=== PATIENT | male | born 1990 | race Caucasian/White ===

== ENCOUNTER 2022-01-09 14:36 | Emergency (ER) | payer OTHER ==
[~2022-01-09] VITALS: Ht 180.3 cm; Wt 82.1 kg
[2022-01-09 14:37] VITALS: BP 131/75
[2022-01-09] MEDS ORDERED: FLUORESCEIN OPHTH 1 MG STRIP OD ONE (15:25)
[2022-01-09] MEDS ORDERED: POLYSOL OD (15:52)
== END 2022-01-09 16:24 | disposition home or self-care (01) ==
LOC: M ED 14:36
DX: H10.31 Unspecified acute conjunctivitis, right eye (principal)

== ENCOUNTER 2022-08-02 10:20 | Inpatient (IN) | payer OTHER ==
[~2022-08-02] VITALS: Ht 182.9 cm; Wt 73.9 kg
[~2022-08-02 10:20] MED LIST: POLYSOL OD
[2022-08-02 11:13] LABS: HEMATOCRIT 44.5 % (42.0-52.0); HEMOGLOBIN 15.4 g/dl (13.5-17.5); MEAN CORPUSCULAR HEMOGLOBIN 32.9 pg (27.0-33.0); MEAN CORPUSCULAR HGB CONC 34.6 g/dl (32.0-36.5); MEAN CORPUSCULAR VOLUME 95.1 fl (80.0-96.0); PLATELET COUNT, AUTOMATED 218 10^3/uL (150-450); RED BLOOD COUNT 4.68 10^6/uL (4.30-6.10); WHITE BLOOD COUNT 8.6 10^3/uL (4.0-10.0)
[2022-08-02 11:43] LABS: AMPHETAMINES LEVEL URINE NEGATIVE (NEGATIVE); BARBITURATES URINE NEGATIVE (NEGATIVE); BENZODIAZEPINES URINE NEGATIVE (NEGATIVE); CANNABINOIDS URINE POSITIVE (NEGATIVE); COCAINE METABOLITE URINE NEGATIVE (NEGATIVE); METHADONE URINE NEGATIVE (NEGATIVE); OPIATES URINE NEGATIVE (NEGATIVE); PHENCYCLIDINE URINE NEGATIVE (NEGATIVE)
[2022-08-02 12:05] LABS: ACETAMINOPHEN LEVEL < 2.0 UG/ML (10.0-30.0); ALBUMIN 4.4 GM/DL (3.2-5.2); ALT/SGPT 36 U/L (12-78); BILIRUBIN,DIRECT 0.4 MG/DL (0.0-0.2); BILIRUBIN,TOTAL 1.4 MG/DL (0.2-1.0); BLOOD UREA NITROGEN 13 MG/DL (7-18); CALCIUM LEVEL 9.2 MG/DL (8.5-10.1); CARBON DIOXIDE LEVEL 27 MEQ/L (21-32); CHLORIDE LEVEL 106 MEQ/L (98-107); CREATININE FOR GFR 0.81 MG/DL (0.70-1.30); ETHYL ALCOHOL (ETHANOL) < 0.003 % (0.000-0.010); GLOMERULAR FILTRATION RATE > 60.0 (>60); GLUCOSE, FASTING 112 MG/DL (70-100); POTASSIUM SERUM 3.6 MEQ/L (3.5-5.1); SALICYLATE LEVEL < 1.7 MG/DL (5.0-30.0); SODIUM LEVEL 139 MEQ/L (136-145); THYROID STIMULATING HORMONE 0.337 uIU/ML (0.358-3.740); TOTAL PROTEIN 7.4 GM/DL (6.4-8.2)
[2022-08-02] MEDS ORDERED: NICOTINE 21MG/24HR 1 EA TRANSDERMAL TD ONE (12:25)
[2022-08-02 12:48] LABS: RSV AMPLIFICATION NEGATIVE (NEGATIVE)
[2022-08-02] MEDS ORDERED: EXCETAB32 PO (13:36)
[2022-08-02] MEDS ORDERED: HOME MED LIST COMPLETE! XX SCH ×2 (13:40→18:45)
[2022-08-02] MEDS ORDERED: MOM 30ML SUSPENSION UDC PO PRN (22:45)
[2022-08-02] MEDS ORDERED: traZODone 50 MG TAB PO PRN (22:45)
[2022-08-02] MEDS ORDERED: MAALOX 30 ML SUSP *UDC PO PRN (22:45)
[2022-08-02 23:33] VITALS: BP 135/90
[2022-08-03 06:30] VITALS: BP 148/79
[2022-08-03] MEDS: NICOTINE 14 MG/24 HR TRANSDERMAL TD SCH (08:23)
[2022-08-03] MEDS: ACETAMINOPHEN TAB 650MG DOSE (2X325MG) PO PRN (08:23)
[2022-08-03] MEDS: ESCITALOPRAM OXALATE 10 MG TAB (LEXAPRO) PO SCH (12:01)
[2022-08-03 16:23] VITALS: BP 136/79
[2022-08-03] MEDS: hydrOXYzine 50 MG TAB PO PRN (18:52)
[2022-08-04 06:32] VITALS: BP 146/88
[2022-08-04] MEDS: NICOTINE 14 MG/24 HR TRANSDERMAL TD SCH (09:18)
[2022-08-04] MEDS: ESCITALOPRAM OXALATE 10 MG TAB (LEXAPRO) PO SCH (09:18)
[2022-08-04 16:12] VITALS: BP 138/89
[2022-08-05 06:49] VITALS: BP 133/73
[2022-08-05] MEDS: ESCITALOPRAM OXALATE 10 MG TAB (LEXAPRO) PO SCH (08:49)
[2022-08-05] MEDS: NICOTINE 14 MG/24 HR TRANSDERMAL TD SCH (08:49)
[2022-08-05] MEDS: ACETAMINOPHEN TAB 650MG DOSE (2X325MG) PO PRN (13:05)
[2022-08-05 16:31] VITALS: BP 136/88
[2022-08-05] MEDS: hydrOXYzine 50 MG TAB PO PRN (22:46)
[2022-08-06 06:36] VITALS: BP 129/87
[2022-08-06] MEDS: ESCITALOPRAM OXALATE 10 MG TAB (LEXAPRO) PO SCH (08:04)
[2022-08-06] MEDS ORDERED: LEXA1TAB PO (08:12)
[2022-08-06] MEDS ORDERED: HYDR50TA70 PO (08:12)
[2022-08-06] MEDS ORDERED: TRAZ-252 PO (08:12)
[2022-08-06] MEDS: NICOTINE 14 MG/24 HR TRANSDERMAL TD SCH (09:00)
== END 2022-08-06 12:30 | disposition home or self-care (01) | DRG 753 ==
LOC: M ED 10:20 → M ED INP 22:41 → M PSY 23:37
PROVIDERS: ADMIT Psychiatry & Neurology Psychiatry; ATTEND Psychiatry & Neurology Psychiatry
DX: F39 Unspecified mood [affective] disorder (principal); F41.9 Anxiety disorder, unspecified; F12.10 Cannabis abuse, uncomplicated; F17.210 Nicotine dependence, cigarettes, uncomplicated; Z62.810 Personal history of physical and sexual abuse in childhood; Z91.51 Personal history of suicidal behavior; R45.851 Suicidal ideations; G43.909 Migraine, unspecified, not intractable, without status migrainosus; Z81.8 Family history of other mental and behavioral disorders; F60.3 Borderline personality disorder; F90.9 Attention-deficit hyperactivity disorder, unspecified type

== ENCOUNTER 2022-11-15 14:57 | Emergency (ER) | payer OTHER ==
[~2022-11-15] VITALS: Ht 182.9 cm; Wt 78.5 kg
[~2022-11-15 14:57] MED LIST changes: +EXCETAB32 PO; +HYDR50TA70 PO; +LEXA1TAB PO; +TRAZ-252 PO
[2022-11-15] MEDS ORDERED: IBUPROFEN 600MG TAB PO ONE (18:25)
[2022-11-15 18:54] VITALS: BP 121/77
== END 2022-11-15 18:55 | disposition home or self-care (01) ==
LOC: M ED 14:57
DX: S50.02XA Contusion of left elbow, initial encounter (principal); W01.0XXA Fall on same level from slipping, tripping and stumbling without subsequent striking against object, initial encounter; Y99.0 Civilian activity done for income or pay; F31.9 Bipolar disorder, unspecified; K58.9 Irritable bowel syndrome, unspecified; Z91.048 Other nonmedicinal substance allergy status; Z79.899 Other long term (current) drug therapy

== ENCOUNTER 2023-01-21 19:50 | Emergency (ER) | payer OTHER ==
[~2023-01-21] VITALS: Ht 180.3 cm; Wt 77.1 kg
[2023-01-21 19:52] VITALS: BP 124/72
[2023-01-21] MEDS ORDERED: BOOSTRIX/ADACEL VACCINE (DIPHTH/PERTUSS/ACELL/TETANUS) 0.5ML SYR IM.IMMUN ONE (20:40)
[2023-01-21] MEDS ORDERED: IBUPROFEN 800 MG TAB PO ONE (20:45)
== END 2023-01-21 21:02 | disposition home or self-care (01) ==
LOC: M ED 19:50
DX: S91.331A Puncture wound without foreign body, right foot, initial encounter (principal); W45.0XXA Nail entering through skin, initial encounter; F17.200 Nicotine dependence, unspecified, uncomplicated; Z91.048 Other nonmedicinal substance allergy status; Z79.899 Other long term (current) drug therapy; Z23 Encounter for immunization

== ENCOUNTER 2023-02-04 22:42 | Emergency (ER) | payer OTHER ==
[~2023-02-04] VITALS: Ht 182.9 cm; Wt 82.0 kg
[2023-02-04 22:42] VITALS: BP 132/80
== END 2023-02-05 02:18 | disposition left against medical advice (07) ==
LOC: M ED 22:42
DX: Z53.21 Procedure and treatment not carried out due to patient leaving prior to being seen by health care provider (principal)

== ENCOUNTER 2023-06-06 07:04 | Emergency (ER) | payer OTHER ==
[~2023-06-06] VITALS: Ht 182.9 cm; Wt 81.6 kg
[2023-06-06 07:05] VITALS: BP 132/83; TEMP 98; O2SAT 99
[2023-06-06] MEDS ORDERED: LEXA1TAB (07:16)
[2023-06-06] MEDS ORDERED: HYDR50TA70 (07:16)
[2023-06-06] MEDS ORDERED: ATOM40CA16 (07:16)
[2023-06-06] MEDS ORDERED: TRAZ-252 (07:16)
== END 2023-06-06 08:30 | disposition left against medical advice (07) ==
LOC: M ED 07:04
DX: Z53.21 Procedure and treatment not carried out due to patient leaving prior to being seen by health care provider (principal)